=== PATIENT | male | born 1980 | race Caucasian/White ===

== ENCOUNTER 2021-09-29 01:44 | Emergency (ER) | payer OTHER, BC, SELFPAY ==
[2021-09-29 01:44] VITALS: BP 159/109; PULSE 93; RESP 15; TEMP 36.6; O2SAT 99; BMI 43.9
--- NOTE | 2021-09-29 01:52 | EX.ED.UPPERE ---
HPI History of Present Illness HPI Narrative: Patient presents with injury to his left fifth finger that occurred tonight at work. Patient states he got it smashed in a machine. Patient states this occurred approximate 2 hours prior to arrival. Patient describes his pain as throbbing. Patient denies any paresthesias or weakness. Patient states nothing makes the pain better nothing makes the pain worse. Patient states his last tetanus was more than 10 years ago. Patient denies any other injuries. 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 Onset/Context/Timing Onset: Today and Hours (2) Context: Sudden Onset Timing: Continuous Quality of Pain: Throbbing Location: Left fifth finger Worsened by: Nothing Relieved by: Nothing Associated Symptoms Associated Symptoms: Negative for Parasthesia, Weakness and Loss of Funtion Narrative Tetanus Immunization: >10 years PFSH PFSH Home Medications atorvastatin 20 mg PO DAILY 09/29/21 [History Last Taken Unknown] cephalexin 500 mg PO Q6 #40 capsule 09/29/21 [Rx Last Taken Unknown] Allergy/AdvReac Type Severity Reaction Status Date / Time No Known Allergies Allergy Verified 09/29/21 01:48 Surgical History no surgical history no surgical history Social History Smoking Status: Former smoker ROS ROS ED Constitutional Constitutional ED: Denies chills or fever(s) Eyes Eyes: Denies blurry vision or change in vision ENT ENT ED: Denies rhinorrhea or sore throat Cardiovascular Cardiovascular: Denies chest pain or palpitations Respiratory/Chest Respiratory/Chest: Denies cough or dyspnea Gastrointestinal Gastrointestinal: Denies nausea or vomiting Genitourinary Genitourinary ED: Denies dysuria or hematuria Musculoskeletal Musculoskeletal: Denies back pain or neck pain Integumentary Denies abscess or rash Neurologic Neurologic: Denies headache(s) or weakness Allergic/Immunologic Allergic/Immunologic ED: Denies mouth swelling or urticaria EXAM Physical Exam Const Vital Signs: 09/29/21 01:44 Temperature 97.9 F Temperature Source Oral Pulse Rate 93 Respiratory Rate 15 Blood Pressure 159/109 H Blood Pressure Mean 125 Pulse Ox 99 Oxygen Delivery Method Room Air Positive well nourished and well developed General Appearance ED: well developed and NAD HEENT Reports moist mucous membranes Neck full ROM Extremity Extremity Narrative: There is tenderness over the distal phalanx of the left fifth finger. There is avulsion of the base of the nail plate. There is no obvious deformity. There is good range of motion in flexion and extension of the MP, PIP, and DIP joints. Sensation was intact to light touch in all digits. Capillary refill was less than 2 seconds in all digits. Neuro oriented x3, CN's II-XII intact bilaterally, moves all extremities, no focal motor deficits and no sensory deficits noted Sensorium / Orientation: alert Psych mental status grossly normal MDM MDM MDM Narrative Medical decision making narrative: X-rays of the left fifth finger were obtained. There are 3 views. On my interpretation, there is a nondisplaced tuft fracture of the distal phalanx. Radiologist also interpreted the x-rays and agrees. Patient was given a dose of Keflex here. Patient was given a tetanus booster. The left fifth finger was cleaned and anesthetized 1% lidocaine via digital block. The nail plate was replaced underneath the eponychium. Patient tolerated the procedure well. Bacitracin dressing was applied. Patient was instructed to keep the wound clean and dry. Patient was instructed to follow-up with his primary care physician or the [facility] in 5 to 7 days. Patient understood and was agreeable with the plan. All questions were answered. Discharge Plan Triage Chief Complaint: Upper Extremity Injury ED Provider: Hasmukh Lewis Dx/Rx/DC Orders Clinical Impression: Open fracture of distal phalanx of left little finger, Traumatic avulsion of nail plate of finger Instructions: ED Open Hand Fracture (Adult) Prescriptions: New cephalexin [cephalexin] 500 MG capsule 500 mg PO Q6 Qty: 40 RF: 0 No Action atorvastatin 20 mg tablet 20 mg PO DAILY RF: 0 Stand Alone Forms: Work Status Form Primary Care Provider: Imer Alonzo Referrals: Imer Alonzo MD [Primary Care Provider] - 5-7 Days Disposition Disposition: Home, Self Care
[2021-09-29] MEDS: Diphth,Pertuss(Acell),Tet Vac 0.5 ML Vial IM (02:34)
--- NOTE | 2021-09-29 02:40 | RAD_ITS ---
STUDY: X-RAY - LEFT HAND, ATTENTION FINGER REASON FOR EXAM: Male, 40 years old. Injury/Pain TECHNIQUE: 3 view(s) of the finger were obtained. COMPARISON: None. FINDINGS: BONES: Acute fracture distal phalangeal tuft. Nondisplaced. JOINTS: No dislocation. SOFT TISSUES: Soft tissue swelling in the distal digit. RAD/Finger(s) Min 2 Views IMPRESSION: Nondisplaced distal phalangeal tuft fracture. Electronically Signed: Olena Ramos MD at 3:18 EDT ,
[2021-09-29] MEDS: Lidocaine 1% (20 ml mdv) 20 ML Vial INFILT (02:45)
[2021-09-29] MEDS: Cephalexin 500 MG Capsule PO (03:32)
[2021-09-29 03:39] VITALS: BP 148/76; PULSE 72; RESP 15; O2SAT 98
== END 2021-09-29 03:41 | disposition home or self-care (01) ==
PROVIDERS: Emergency Provider Emergency Medicine; PCP Family Medicine; Visit Provider Emergency Medicine
DX: S62.667B Nondisplaced fracture of distal phalanx of left little finger, initial encounter for open fracture (principal); W31.9XXA Contact with unspecified machinery, initial encounter; Y99.0 Civilian activity done for income or pay; Z87.891 Personal history of nicotine dependence; Z23 Encounter for immunization
CPT/HCPCS: 11760; 73140; 90471; 90715; 99285

== ENCOUNTER 2025-01-28 08:10 | Emergency (ER) | payer BC, SELFPAY ==
[2025-01-28 08:10] VITALS: BP 177/88; PULSE 64; RESP 14; TEMP 36.6; O2SAT 98; BMI 43.0
--- NOTE | 2025-01-28 08:38 | RAD_ITS ---
PROCEDURE: KNEE 4 OR MORE VIEWS 01/28/2025 REASON FOR EXAM: PAIN No known injury. TECHNIQUE: Procedure Code: RADKN Modality: DX Procedure: KNEE 4 OR MORE VIEWS Laterality: Right knee COMPARISON: None FINDINGS: Bones: No fracture. No suspicious bone lesion. Joints: Normal alignment. Mild degenerative changes. Effusion: No effusion. Soft tissues: Soft tissues are unremarkable. Other: RAD/Knee 4 or More Views IMPRESSION: NO EFFUSION ACUTE FRACTURE OR DISLOCATION. Reading Location: [place] [id number]
--- NOTE | 2025-01-28 08:39 | ED.VIS.LOWEX ---
HPI History of Present Illness Chief Complaint: Lower Extremity Injury Detail of Chief Complaint: Right knee pain Informant: patient Narrative Narrative: Patient presents to the emergency department complaint of right knee pain x 4 days. No injury recalled. Patient does do a lot of bending and twisting at work. Denies fevers or chills or sweats. Denies recent travel or surgery. Pain all the time but worse with bending the knee sometimes. Does have occasionally popping and clicking. No history of PE or DVT. Patient does have history of gout but that typically has been in his toe. [facility] Medical History (Updated 01/28/25 @ 09:[address] Brenna Negro, DO) GERD (gastroesophageal reflux disease) High cholesterol Hypertension Home Medications ?Medication ?Instructions ?Recorded ?Last Taken ?Type atorvastatin 20 mg tablet 20 mg PO DAILY 09/29/21 Unknown History cephalexin 500 mg capsule 500 mg PO Q6 #40 CAPSULES 09/29/21 Unknown Rx prednisone 20 mg tablet 20 mg PO BID #8 tabs 01/28/25 Unknown Rx Allergy/AdvReac Type Severity Reaction Status Date / Time Unable to Assess Allergy Verified 01/28/25 08:13 Social History Smoking Status: Former smoker ROS ROS ED Review of Systems ROS Unobtainable: other Constitutional Constitutional ED: Reports lethargy; Denies chills, fever(s), sweats or weight loss Eyes Eyes: Denies blurry vision, change in vision or diplopia ENT ENT ED: Denies rhinorrhea or sore throat Cardiovascular Cardiovascular: Denies chest pain, orthopnea or racing heartbeat Respiratory/Chest Respiratory/Chest: Denies cough, dyspnea, dyspnea on exertion, orthopnea or sputum Gastrointestinal Gastrointestinal: Denies abdominal pain, diarrhea, nausea or vomiting Genitourinary Genitourinary ED: Denies dysuria, hematuria or urinary frequency Musculoskeletal Musculoskeletal: Reports other Details: Right knee pain ; Denies arthralgias, back pain, myalgias or neck pain Integumentary Denies abscess, Abrasions or rash Neurologic Neurologic: Denies headache(s) or weakness Psychiatric Psychiatric: Denies anxiety, depression or suicidal thoughts Endocrine Endocrinology: Denies polydipsia, polyphagia or polyuria Hematologic/Lymphatic Hematologic/Lymphatic: Denies easy bleeding, easy bruising or lymphadenopathy Allergic/Immunologic Allergic/Immunologic ED: Denies mouth swelling, tongue swelling or urticaria EXAM Physical Exam Const Vital Signs: 01/28/25 08:10 Temperature 98 F Temperature Source Temporal Pulse Rate 64 Respiratory Rate 14 Blood Pressure 177/88 H Blood Pressure Mean 117 Pulse Ox 98 Oxygen Delivery Method Room Air Positive well nourished and well developed General Appearance ED: well developed and NAD HEENT Reports TM's clear and moist mucous membranes normocephalic and atraumatic; Negative for trauma or tenderness Tympanic Membrane ED: Yes TM's clear Eyes PERRL and EOMs intact bilaterally General Eye ED: Negative for pale conjunctiva or scleral icterus Neck no lymphadenopathy, supple and no JVD General: Negative for tenderness Chest Wall inspection of chest normal and palpation of chest normal Chest: Negative for tenderness Resp normal respiratory effort and clear to auscultation bilaterally Effort and Inspection: Negative for respiratory distress or pain with movement Auscultation: Negative for rhonchi, wheezes or diminished lung sounds Cardio regular rate, regular rhythm, S1 normal heart sound, S2 normal heart sound and no murmurs Peripheral Pulses: pulses 2+ throughout GI normal to inspection, nondistended, normoactive bowel sounds, soft to palpation, non-tender, non-distended and no masses Back/Spine no CVA tenderness and no thoracic nor lumbar tenderness Extremity Extremity Narrative: Right knee-no erythema or warmth. There is no effusion. He is ligamentously stable. Unable to reproduce pain with palpation of the knee. He does have pain with flexion of the knee. There is no edema to the calf or tenderness over the calf. No ropes or cords palpated. Neurovascular intact distally. General Extremety ED: Negative for edema General Extremity: Negative for edema Neuro oriented x3, CN's II-XII intact bilaterally, no sensory deficits noted and gait normal Sensorium / Orientation: awake, alert, oriented to person, oriented to place and oriented to time Motor Exam: strength 5/5 throughout and strength abnormal Psych mental status grossly normal Skin no rashes or lesions noted and no wounds MDM MDM MDM Narrative Medical decision making narrative: Patient presents with atraumatic right knee pain. He does have remote history of gout typically in the toe. No significant effusion and no erythema. Do not suspect infectious process. Low suspicion for DVT as pain is mostly encompassing the knee and exacerbated by flexion of the knee. I will start patient on prednisone as he was advised not to take anti-inflammatories by his primary care physician due to history of hypertension. Patient does not want a thing stronger for pain. He does not want crutches or knee immobilizer. I will give him work restrictions. I will refer to orthopedics for follow-up. In the differential would be gout versus ligamentous strain versus possibly meniscus injury. Radiography Diagnostic Testing: Clinical Impression(s) from Imaging Studies Knee X-Ray 01/28/25 08:38 IMPRESSION: NO EFFUSION ACUTE FRACTURE OR DISLOCATION. Reading Location: [facility] 4 view x-rays of the right knee obtained interpreted by myself as no evidence of fracture or dislocation or other acute abnormality. I do not appreciate any effusion. Radiology in agreement. Discharge Plan Triage Chief Complaint: Lower Extremity Injury ED Provider: Brenna Negro Dx/Rx/DC Orders Clinical Impression: Acute knee pain Instructions: Knee Pain, ED Pain, Acute, Uncertain Cause Prescriptions: New prednisone 20 mg tablet 20 mg PO BID Qty: 8 0RF No Action atorvastatin 20 mg tablet 20 mg PO DAILY Patient Comments: TAKE 1 TABLET BY MOUTH EVERY DAY cephalexin [cephalexin] 500 MG capsule 500 mg PO Q6 Qty: 40 0RF Primary Care Provider: Imer Alonzo Referrals: Kaleb Jesus MD [Med Staff - Active Staff, Orthopedics] - 3-5 Days Imer Alonzo MD [Primary Care Provider, Medical] Print Language: Albanian Disposition Disposition: Home, Self Care
== END 2025-01-28 09:25 | disposition home or self-care (01) ==
PROVIDERS: Emergency Provider Emergency Medicine; PCP Family Medicine; Visit Provider Emergency Medicine
DX: M25.561 Pain in right knee (principal); E78.00 Pure hypercholesterolemia, unspecified; Z87.891 Personal history of nicotine dependence; I10 Essential (primary) hypertension; K21.9 Gastro-esophageal reflux disease without esophagitis
CPT/HCPCS: 73564; 99282

== ENCOUNTER 2025-03-24 12:32 | Day surgery (SDC) | payer BC, SELFPAY ==
--- NOTE | 2025-03-19 14:47 | PAT.ANE_ITS ---
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 When Was Last Pacemaker Check QUESTION #4 FULL TEXT: You/Your Family Experience fever (hyperthermia) with Anesthesia Last Oral Intake Last Oral intake: Last Oral Intake NPO since Meds taken in AM with sips of water? 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 Female No 03/19/25 13:27 HX of Motion Sickness No 03/19/25 13:27 HX of N/V After Surgery No 03/19/25 13:27 Non-Smoker Yes 03/19/25 13:27 Duration of Surgery greater Yes 03/19/25 13:27 than 60 minutes Number of Risk Factors 2 03/19/25 13:27 PONV Score Moderate Risk 03/19/25 13:27 Height & Weight Height & Weight: Anesthesia: Height & Weight Height 6 ft 3 in 01/28/25 08:10 Respiratory Assessment Respiratory Assessment - secondary school teacher: Respiratory Tract Infection Hx - secondary school teacher Hx Respiratory Tract Infection No 03/19/25 13:27 STOP Sleep Apnea STOP Sleep Apnea - secondary 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 Has anyone observed you stop breathing during sleep? STOP Results Positive 03/19/25 13:27 QUESTION #5 FULL TEXT : Do you snore loudly (louder than talking or can be heard through closed doors)? 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 Specify any problems Hx of Preganancy in last 3 N/A 03/19/25 13:27 Months Nurse Filling Out Transfusion DSCHRIBER 03/19/25 13:27 & Questions: Date: 03/19/25 03/19/25 13:27 Time: 13:28 03/19/25 13:27 Patient unable to answer at this time (ie. confused, unrespo /Reproduction History /Reproductive History - secondary school teacher: /Reproductive Hx- secondary school teacher Hx Now No 03/19/25 13:27 Gestational Age (in weeks): EDC: Hx Hx Para Hx Section SAB No 03/19/25 13:27 Does the father of the baby or his family experience fever w Father of the baby Malignant Hypertension history comment [facility] Medical History (Updated 03/19/25 @ 13:35 by Mayte Nguyễn) Wears glasses History of steroid therapy Diabetes Arthritis Fatty liver History of Holter monitoring Gastric reflux Former smoker CPAP (continuous positive airway pressure) dependence History of edema History of pain when walking History of stress test History of echocardiogram Cardiology follow-up encounter History of atrial fibrillation GERD (gastroesophageal reflux disease) High cholesterol Hypertension Home Medications Medication Instructions Recorded Last Taken Type atorvastatin 20 mg tablet 20 mg PO QHS 09/29/21 Unknow n History aspirin 81 mg tablet,delayed 81 mg PO DAILY 03/19/25 U nknown History release (Adult Aspirin Regimen) losartan 100 mg tablet 100 mg PO QHS 03/19/25 Unkno wn History metoprolol succinate 25 mg 25 mg PO DAILY 11/12/25 Unk nown History tablet,extended release 24 hr [id number] C 250 3 tab PO DAILY 03/19/25 Un known History mg-herbal no.124 11.66 mg chewable tablet (Airborne Gummy) pantoprazole 40 mg tablet,delayed 40 mg PO DAILY 03/19 Unknown History release Allergy/AdvReac Type Severity Reaction Status Date / Time allopurinol AdvReac Intermediate Nausea/Vom/ Verified 03/19/25 13:23 Diarrhea Surgical History (Updated 03/19/25 @ 13:35 by Mayte Nguyễn) Hx of wisdom tooth extraction History of tonsillectomy and adenoidectomy Social History Smoking Status: Former smoker Audit: Pertinent Findings HISTORY of Pertinent Findings History of Pertinent Findings: HTN, obesity, SUNSHINE. Diagnosed with AF. Pertinent Findings EKG Perinent findings: EKG 01/2025: NSR Echo (EF%) pertinent findings: TTE 02/2025: LV Sys fxn: normal, LVEF 55%, no abnormalities with valves Additional pertinent findings: Holter 01/2025: SR, with Afib (3% burden). Current Visit Impressions Current Visit Impressions: Patient denied anticoagulation for Afib, on metoprolol 25 Recommendation Anesthesia Recommendation Anesthesia recommendation: OPTIMIZED for anesthesia (Cleared by Dr. Mendes (cardiology) [facility] )
[2025-03-24] VITALS (9 sets, daily range): BP systolic 127–154; BP diastolic 76–98; PULSE 63–85; RESP 16–18; TEMP 36.3–37.2; O2SAT 97–98; BMI 43.5
[2025-03-24] MEDS: Lactated Ringers 1,000 ML 15 ML IV (13:20)
--- NOTE | 2025-03-24 13:50 | PCM.PRE.AN2 ---
ASA Classification* ASA Classification ASA Classification: 3 Assessment & Plan Anesthesia* Anesthesia Assessment Anesthesia Assessment: Discussed sedation and/or anesthesia options, risks, benefits, and alternatives with patient/parents/legal guardian/POA. Questions invited. The patient/parents/legal guardian/POA seems to understand and agrees to proceed with anesthesia plan. Reviewed the physical assessment, medical history, allergy history and patient home medications list prior to surgery/procedure/anesthetic and documented any changes. Performed airway and anesthesia risk assessments. Anesthesia Type Anesthesia Type: General and Block History Source History Obtained from:: Patient and Chart Anesthesia Focused Assessment* Temperature: 99.0 F Pulse Rate: 85 Blood Pressure: 154/84 Respiratory Rate: 18 Pulse Ox: 97 Oxygen Delivery Method: Room Air Airway Assessment Mouth opens: >3 cm Mallampati Score: I Teeth Condition: Chipped/Broken (Patient has 1 broken right lower molar.) and Missing (Patient is missing a left upper molar. Rest the teeth are tight.) Neck Range of motion (ROM): Limited ROM (Slight Decrease) Comment: Full kam. Labs Anesthesia Preop lab: CBC WBC, (4.4-11.0) 10.8 K/mm3 07/28/16, 09:25 RBC, (4.6-6.2) 4.95 M/mm3 07/28/16, 09:25 Hgb, (13.0-16.5) 15.0 g/dl 07/28/16, 09:25 Hct, (40-54) 44.6 % 07/28/16, 09:25 Plt Count, (150-450) 187 K/mm3 07/28/16, 09:25 CHEMISTRY Potassium, (3.5-5.1) 3.8 mmol/L 07/28/16, 09:25 Sodium, (136-145) 136 mmol/L 07/28/16, 09:25 BUN, (7-18) 9 mg/dL 07/28/16, 09:25 Creatinine, (0.70-1.30) 1.04 mg/dL 07/28/16, 09:25 Glucose, (70-110) 109 mg/dL 07/28/16, 09:25 POC Glucose, (74-106) 122 mg/dL H Today, 12:56 COAG Pre-Assessment Diagnosis/Proposed Procedure Planned Operative Procedure(s): R knee scope Anesthesia History 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 When Was Last Pacemaker Check QUESTION #4 FULL TEXT: You/Your Family Experience fever (hyperthermia) with Anesthesia Last Oral Intake Last Oral intake: Last Oral Intake NPO since 19:30 03/24/25 12:59 Meds taken in AM with sips of water? Meds patient instructed to take am of surgery PONV PONV - agricultural equipment mechanic: PONV - agricultural equipment mechanic Female No 03/19/25 13:27 HX of Motion Sickness No 03/19/25 13:27 HX of N/V After Surgery No 03/19/25 13:27 Non-Smoker Yes 03/19/25 13:27 Duration of Surgery greater Yes 03/19/25 13:27 than 60 minutes Number of Risk Factors 2 03/19/25 13:27 PONV Score Moderate Risk 03/19/25 13:27 Height & Weight Height & Weight: Anesthesia: Height & Weight Height 6 ft 3 in 03/24/25 12:59 Weight: 158 kg 03/24/25 12:59 Body Mass Index (BMI) 43.5 03/24/25 12:59 Respiratory Assessment Respiratory Assessment - agricultural equipment mechanic: Respiratory Tract Infection Hx - agricultural equipment mechanic Hx Respiratory Tract Infection No 03/19/25 13:27 STOP Sleep Apnea STOP Sleep Apnea - agricultural equipment mechanic: STOP Sleep Apnea - agricultural equipment mechanic Hx Hypertension Yes: CONTROLLED WITH MED 03/19/25 13:27 Hx Sleep Apnea Yes 03/19/25 13:27 CPAP Yes: NONCOMPLIANT 03/19/25 13:27 BIPAP No 03/19/25 13:27 Do you snore loudly (louder than talking or can be heard Do you often feel tired/ fatigued/ sleepy during daytime? Has anyone observed you stop breathing during sleep? STOP Results Positive 03/19/25 13:27 QUESTION #5 FULL TEXT : Do you snore loudly (louder than talking or can be heard through closed doors)? 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 - agricultural equipment mechanic: Tobacco Use History - agricultural equipment mechanic Tobacco Use Smoking Status Former smoker 03/19/25 13:27 Hx Tobacco Use No 03/19/25 13:27 Years Smoking Packs Smoked per Day Smoking Cessation Date was Yes - quit smoking within 15 03/19/25 13:27 within the last 15 years years Hx Smoking Cessation Date 05/08/11 03/19/25 13:27 Hx Smoking Cessation No 03/19/25 13:27 Counseling Hematologic Medial History Hematologic Hx - agricultural equipment mechanic: Hematologic Medical Hx - compounder flavorings Hx of Blood Transfusion No 03/19/25 13:27 Hx of Transfusion in last 3 No 03/19/25 13:27 Months Date of Last Transfusion (if within last 3 months) Ever experience any problems No 03/19/25 13:27 with transfusion(s)? Specify any problems Hx of Preganancy in last 3 N/A 03/19/25 13:27 Months Nurse Filling Out Transfusion DSCHRIBER 03/19/25 13:27 & Questions: Date: 03/19/25 03/19/25 13:27 Time: 13:28 03/19/25 13:27 Patient unable to answer at this time (ie. confused, unrespo /Reproduction History /Reproductive History - agricultural equipment mechanic: /Reproductive Hx- agricultural equipment mechanic Hx Now No 03/19/25 13:27 Gestational Age (in weeks): EDC: Hx Hx Para Hx Section SAB No 03/19/25 13:27 Does the father of the baby or his family experience fever w Father of the baby Malignant Hypertension history comment Active Medications Active Medications: Current Medications Generic Name Dose Route Start Last Admin Trade Name Freq PRN Reason Stop Dose Admin Lactated Ringer's 1,000 mls @ 15 mls/hr 03/24/25 12:45 03/24/25 13:20 IV 15 mls/hr .Q48H CALISTA Administration PFSH Medical History Wears glasses History of steroid therapy Diabetes Arthritis Fatty liver History of Holter monitoring Gastric reflux Former smoker CPAP (continuous positive airway pressure) dependence History of edema History of pain when walking History of stress test History of echocardiogram Cardiology follow-up encounter History of atrial fibrillation GERD (gastroesophageal reflux disease) High cholesterol Hypertension Home Medications Medication Instructions Recorded Last Taken Type atorvastatin 20 mg tablet 20 mg PO QHS 09/29/21 03/23/25 History aspirin 81 mg tablet,delayed 81 mg PO DAILY 03/19/25 03/23/25 History release (Adult Aspirin Regimen) losartan 100 mg tablet 100 mg PO QHS 03/19/25 03/23/25 History metoprolol succinate 25 mg 25 mg PO DAILY 03/19/25 03/23/25 History tablet,extended release 24 hr erwylgmo-[id number] C 250 3 tab PO DAILY 03/19/25 03/23/25 History mg-herbal no.124 11.66 mg chewable tablet (Airborne Gummy) pantoprazole 40 mg tablet,delayed 40 mg PO DAILY 03/19/25 03/23/25 History release Allergy/AdvReac Type Severity Reaction Status Date / Time allopurinol AdvReac Intermediate Nausea/Vom/ Verified 03/24/25 12:58 Diarrhea Surgical History (Updated 03/24/25 @ 13:[address] Ramon Stiles MD) S/P colonoscopy Hx of wisdom tooth extraction History of tonsillectomy and adenoidectomy Social History Smoking Status: Former smoker Review of Systems (Anesthesia) ROS Narrative System reviewed and no additional complaints, except as documented.
[2025-03-24] MEDS: Midazolam 2 MG/2 ML Syringe IV (14:10)
[2025-03-24] MEDS: fentaNYL 100 MCG/2 ML Ampul IV (14:35)
[2025-03-24] MEDS: Lidocaine 1% (5 ml sdv) 5 ML Vial 10 ML IV (14:38)
[2025-03-24] MEDS: Cefazolin 1 GM/5 ML Vial 3 GM IV (14:43)
[2025-03-24] MEDS: Epinephrine (1 mg/ml) 1 MG/ML VIAL (15:08)
[2025-03-24] MEDS: Ketorolac 30 MG/ML Syringe IV (15:12)
--- NOTE | 2025-03-24 15:12 | OP.PCM_ITS ---
Operative Report (Standard) Operative Information Date of Procedure: 03/24/25 Pre-Operative Diagnosis: Right knee medial meniscus tear Post-Operative Diagnosis: Right knee medial meniscus tear Surgery/Procedure Performed: Right knee arthroscopic partial medial meniscectomy account technician: Yes Metal Fitter: Lashae Mittal Tasks completed by chemistry research assistant: Opening & closing and Retracting Additional hearing aid assistant?: No Type of Anesthesia: General/Regional RN Documented Start/Stop Times: Operation Date: 03/24/25 14:15 Case Time Into Pre-Op 03/24/25 12:34 Anesthesia Start 03/24/25 14:31 Into Room 03/24/25 14:31 Procedure Start 03/24/25 14:55 Procedure Start Time: 14:55 Procedure Stop Time: 15:14 Select all DRAINS/GRAFTS/IMPLANTS that apply: None Estimated Blood Loss: 2 cc Specimen collected: No Description of surgery: Patient identified preoperative holding area by name, correct number, and date of . The operative extremity was marked. All questions were answered to the patient satisfaction. At time of his procedure, patient brought the operative suite positioned supine on standard operating table. All bony prominences well-padded. General anesthesia was administered and LMA was placed. A well-padded pneumatic tourniquet was applied to the operative upper thigh. Lateral post was placed. For the better job 20 degrees. We prepped and draped the right lower extremity in normal, sterile orthopedic fashion. We performed timeout with all parties in attendance in agreement with the side, site, operation be performed. 3 g Ancef was administered by anesthesia staff prior to tourniquet ablation. I then exsanguinated right lower extremity with Esmarch bandage. Tourniquet was inflated to 280 mmHg for approximately 15 minutes. Esmarch was removed. Standard anterolateral portal was then established. Blunt tipped trocar was used to enter the knee joint. Knee was filled with normal saline with epineph rine. Arthroscope was then introduced. 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 Hypertrophic fat pad was noted. Medial lateral gutter was unremarkable. Valgus stress was applied the knee to anterior the medial compartment with the knee in extension. Anterior medial portal was established under direct visualization. Medial compartment was then examined. Cartilage appeared pristine in the medial compartment. There was significant narrowing in the medial compartment and I had difficulty fully gapping the joint. Minimal poly crusting was performed at the MCL to increase visualization. No profound release of the MCL was noted but there was improved visualization to avoid chondral injury. The posterior horn complex tearing was then debrided with the arthroscopic shaver. Combination of baskets and shaver were used to debride the tears and perform a partial medial meniscectomy to a stable chondral rim. The meniscal root appeared to be partially through frayed which was debrided but otherwise appeared intact. Intercondylar notch was pristine with normal ACL and PCL. Lateral compartment was then entered. Varus stress was applied. Lateral compartment was examined and was pristine. The knee was thoroughly lavaged after debridement of the fat pad with the arthroscopic shaver. The knee was anesthetized with 30 cc total quarter percent bupivacaine with epinephrine. Portal sites were closed in interrupted [id number]-[id number] fashion with 3-0 nylon suture. Bulky sterile compression system was applied. Tourniquet was deflated. Patient was safely awakened the operative suite and extubated. He was transferred to his gurney and subsequently to PACU in stable condition. Need for skilled hearing aid assistant: Lashae Mittal PA-C was critical to the outcome of the case. During the course of the procedure the physician hearing aid assistant played a vital role. Her intimate knowledge of my steps in the procedure aided in safe and expedient completion of the procedure. The PA played a vital role in positioning particularly in obtaining the appropriate positioning. The PA was also vital in the retraction of soft tissues during the exposure and protecting vital structures. With the patient's BMI of 43.5, a skilled hearing aid assistant was necessary to safely access the joint spaces. She was also available for assistance with possible meniscal repair hardware placement which was not indicated after diagnostic arthroscopy. She assisted in directly supervised wound closure and dressing application. Postoperative plan: Weightbearing, range of motion as tolerated operative knee Follow-up in 2 weeks for suture removal Physical therapy to start at 2 weeks Multimodal pain management with opioid, NSAID and Tylenol Aspirin 81 mg for DVT prophylaxis x 2 weeks Ice and elevation. Surgical Findings: Complex tearing posterior horn and posterior portion of body medial meniscus. Fraying at the medial meniscal root. Grade III chondromalacia patellofemoral joint. Complications Complications: No Admit VTE Documentation VTE Present on Admission: No VTE Mechan Device Prophylaxis: SCD's and Thigh High ROLANDA Hose VTE Pharm Prophylaxis ordered?: Yes
--- NOTE | 2025-03-24 15:28 | PCM.POST.ANE ---
Anesthesia: Postop Eval I Current Vital Signs Temperature: 97.4 F Pulse Rate: 82 Blood Pressure: 127/77 Respiratory Rate: 16 Pulse Ox: 98 Oxygen Flow Rate (L/min): 2 Assessment Airway patent: Yes Spontaneous unlabored respirations: Yes Mental status: Awake and Calm nausea: No Vomiting: No Anesthesia Complication: No Fluid Hydration Crystalloid volume administer (ml): 700 Total IV fluid infused: 700 Progress Note Anesthesia document: Postop Eval 1 completed: Yes
--- NOTE | 2025-03-24 16:32 | POSTOPAN2_ITS ---
Anesthesia Postop Eval I Sum Postop Eval Completion status Anesthesia document: Postop Eval 1 completed: Yes Anesthesia Postop Eval I Summary Anesthesia Postop Eval I Summary: Anesthesia Postop Eval I: Assessment Summary Airway patent Yes 03/24/25 15:29 PROFESSIONAL [email or web address].SHOF Spontaneous unlabored Yes 03/24/25 15:29 PROFESSIONAL [email or web address].SHOF respirations Mental status Awake,Calm 03/24/25 15:29 PROFESSIONAL [email or web address].SHOF nausea No 03/24/25 15:29 PROFESSIONAL FIGHTER.SHOF Vomiting No 03/24/25 15:29 PROFESSIONAL FIGHTER.SHOF Anesthesia Postop Eval I: Fluid Summary Crystalloid volume administer 700 03/24/25 15:29 PROFESSIONAL FIGHTER.SHOF (ml) Colloids volume administered ( ml) Blood Product volume administered (ml) Total IV fluid infused 700 03/24/25 15:29 PROFESSIONAL FIGHTER.SHOF Anesthesia Postop Eval I: Summary Notes Anesthesia Complication No 03/24/25 15:29 PROFESSIONAL [email or web address].SHOF Anesthesia Complication Comment: Post-operative progress note Anesthesia: Postop Eval II Evaluation Mental status: Awake and Calm Pain Level: 1 nausea: No Vomiting: No
--- NOTE | 2025-03-24 16:32 | PCM.POSTANE2 ---
Anesthesia Postop Eval I Sum Postop Eval Completion status Anesthesia document: Postop Eval 1 completed: Yes Anesthesia Postop Eval I Summary Anesthesia Postop Eval I Summary: Anesthesia Postop Eval I: Assessment Summary Airway patent Yes 03/24/25 15:29 ASSEMBLY [email or web address] Spontaneous unlabored Yes 03/24/25 15:29 ASSEMBLY REPAIRER.SHOF respirations Mental status Awake,Calm 03/24/25 15:29 ASSEMBLY REPAIRER.SHOF nausea No 03/24/25 15:29 ASSEMBLY REPAIRER.SHOF Vomiting No 03/24/25 15:29 ASSEMBLY REPAIRER.SHOF Anesthesia Postop Eval I: Fluid Summary Crystalloid volume administer 700 03/24/25 15:29 ASSEMBLY REPAIRER.SHOF (ml) Colloids volume administered ( ml) Blood Product volume administered (ml) Total IV fluid infused 700 03/24/25 15:29 ASSEMBLY REPAIRER.SHOF Anesthesia Postop Eval I: Summary Notes Anesthesia Complication No 03/24/25 15:29 ASSEMBLY REPAIRER.SHOF Anesthesia Complication Comment: Post-operative progress note Anesthesia: Postop Eval II Evaluation Mental status: Awake and Calm Pain Level: 1 nausea: No Vomiting: No
== END 2025-03-24 16:21 | disposition home or self-care (01) ==
LOC: SDC 12:33 → AC 12:33
PROVIDERS: PCP Family Medicine; Referring Provider Student in an Organized Health Care Education/Training Program; Visit Provider Student in an Organized Health Care Education/Training Program
DX: S83.231A Complex tear of medial meniscus, current injury, right knee, initial encounter (principal); I48.91 Unspecified atrial fibrillation; E66.01 Morbid (severe) obesity due to excess calories; Z68.41 Body mass index [BMI] 40.0-44.9, adult; E11.9 Type 2 diabetes mellitus without complications; M22.41 Chondromalacia patellae, right knee; S83.241A Other tear of medial meniscus, current injury, right knee, initial encounter; X58.XXXA Exposure to other specified factors, initial encounter; I10 Essential (primary) hypertension; K21.9 Gastro-esophageal reflux disease without esophagitis; K76.0 Fatty (change of) liver, not elsewhere classified; E78.00 Pure hypercholesterolemia, unspecified; Z79.82 Long term (current) use of aspirin; Z79.899 Other long term (current) drug therapy; Z87.891 Personal history of nicotine dependence
CPT/HCPCS: 29881; 01400; 64447; 82962; J2405